=== PATIENT | female | born 1945 | race Two or more races ===

== ENCOUNTER 2020-01-17 09:45 | Inpatient (IN) | payer OTHER ==
[~2020-01-17] VITALS: Ht 152.4 cm; Wt 81.6 kg
[2020-01-17] MEDS ORDERED: LASIX40 MG PO (12:11)
[2020-01-17] MEDS ORDERED: ENALAPRIL MALEAT5 MG PO (12:11)
[2020-01-17] MEDS ORDERED: ATORVASTATIN CA40 MG PO (12:11)
[2020-01-17] MEDS ORDERED: ADULT LOW DOSE81 M1 PO (12:12)
[2020-01-17] MEDS ORDERED: CLONAZEPAM0.5 MG PO (12:12)
[2020-01-22] MEDS ORDERED: XARELTO10 MG PO (06:31)
[2020-01-22] MEDS ORDERED: OXYC1TAB9 PO (06:31)
[2020-01-22] MEDS ORDERED: INTEGRA PLUS C1 EACH PO (06:31)
[2020-01-23] MEDS ORDERED: OXYC1TAB9 PO (06:45)
[2020-01-23] MEDS ORDERED: XARELTO10 MG PO (06:45)
[2020-01-23] MEDS ORDERED: INTEGRA PLUS C1 EACH PO (06:45)
== END 2020-01-23 17:34 | DRG 470 ==
LOC: SURH 01-20 06:00 → O/R 01-20 06:00 → SURH 01-20 14:45
PROVIDERS: ADMIT Orthopaedic Surgery Sports Medicine
PROC: 0SRC0J9 Replacement of Right Knee Joint with Synthetic Substitute, Cemented, Open Approach (ICD-10-PCS; principal; 2020-01-20 07:00)
DX: M17.11 Unilateral primary osteoarthritis, right knee (principal); I10 Essential (primary) hypertension; E78.5 Hyperlipidemia, unspecified

== ENCOUNTER 2023-04-26 11:45 | Inpatient (IN) | payer OTHER ==
[~2023-04-26] VITALS: Ht 152.4 cm; Wt 81.6 kg
[~2023-04-26 11:45] MED LIST: ADULT LOW DOSE81 M1 PO; ATORVASTATIN CA40 MG PO; CLONAZEPAM0.5 MG PO; ENALAPRIL MALEAT5 MG PO; INTEGRA PLUS C1 EACH PO; LASIX40 MG PO; OXYC1TAB9 PO; XARELTO10 MG PO
[2023-05-10] MEDS ORDERED: XARELTO10 MG PO (06:38)
[2023-05-10] MEDS ORDERED: OXYC1TAB9 PO (06:38)
[2023-05-10] MEDS ORDERED: INTEGRA PLUS C1 EACH PO (06:38)
[2023-05-10] MEDS ORDERED: BACTRIM DS TAB1 EACH PO (06:38)
== END 2023-05-10 17:16 | DRG 470 ==
LOC: SURH 05-01 11:45 → O/R 05-08 07:20 → SURH 05-08 13:14
PROVIDERS: ADMIT Orthopaedic Surgery Sports Medicine; ATTEND Orthopaedic Surgery Sports Medicine
PROC: 0SRD0J9 Replacement of Left Knee Joint with Synthetic Substitute, Cemented, Open Approach (ICD-10-PCS; principal; 2023-05-08 10:30)
DX: M17.12 Unilateral primary osteoarthritis, left knee (principal); I10 Essential (primary) hypertension; Z96.652 Presence of left artificial knee joint; E66.9 Obesity, unspecified; Z20.822 Contact with and (suspected) exposure to COVID-19

== ENCOUNTER 2023-05-05 10:21 | Outpatient (CLI) | payer OTHER | END 2023-05-05 11:22 | disposition home or self-care (01) | LOC: LAB 10:21 | PROVIDERS: ATTEND Orthopaedic Surgery Sports Medicine | DX: Z20.822 Contact with and (suspected) exposure to COVID-19 (principal) ==